=== PATIENT | male | born 1995 | race Two or more races ===

== ENCOUNTER → 2016-11-09 | Outpatient (CLI) | payer SELFPAY ==
--- NOTE | 2016-11-09 13:53 | REP ---
LEFT ANKLE, FOUR VIEWS: HISTORY: Injury. There is no acute fracture or dislocation. The joint space is normal in appearance. A bone island is present in the calcaneus. Soft tissue swelling is present. IMPRESSION: There is no acute fracture or dislocation. Signed by Jerson Blake MD 11/09/2016 01:59 P
== END ==
LOC: M LRY 12:53
PROVIDERS: ATTEND Nurse Practitioner Family
DX: S99.912A Unspecified injury of left ankle, initial encounter (principal); X58.XXXA Exposure to other specified factors, initial encounter; Y92.89 Other specified places as the place of occurrence of the external cause; Y93.89 Activity, other specified; Y99.8 Other external cause status